=== PATIENT | male | born 1965 | race Caucasian/White ===

== ENCOUNTER 2021-04-15 18:52 | Emergency (ER) | payer MEDICARE, OTHER ==
[~2021-04-15 18:52] MED LIST: AMBIEN5 MG PO; ATIVAN0.5 MG PO; BENTYL10 MG PO; LEVAQUIN500 MG PO; LITHIUM CARBON450 MG PO; MEDROL 4MG DOSEP4 MG PO; PHENERGAN25 M1 PO; PROAIR HFA8.5 GM INH; REMERON15 MG PO; RISPERDAL2 MG PO; SEROQUEL200 MG PO; SPIRIVA INH; SYMBICORT 80-10.2 GM INH; TRAZODONE 150M150 MG PO; VENTOLIN HFA IN18 GM INH
[2021-04-15 19:53] LABS: BASOPHIL 0.5 % (0-2); EOSINOPHIL 2.8 % (0-5); HCT 39.7 % (42.0-52.0); HGB 12.6 g/dl (13.2-18.0); LYMPHOCYTE 19.5 % (15-48); MCH 29.9 pg (25.0-31.0); MCHC 31.7 g/dL (32.0-36.0); MCV 94.3 fL (78.0-100.0); MONOCYTE 7.6 % (0-12); MPV 10.5 fL (6.0-9.5); NEUTROPHIL 69.4 % (41-80); NRBC 0; PLT 255 K/uL (150-400); RBC 4.21 M/uL (4.70-6.00); RDW 14.3 % (11.5-14.0); WBC 12.1 K/uL (4.0-10.5)
[2021-04-15 19:56] LABS: BILIRUBIN NEGATIVE (NEGATIVE); BLOOD NEGATIVE Ery/uL (NEGATIVE); CLARITY CLEAR (CLEAR); COLOR YELLOW (YELLOW); GLUCOSE (U) NORMAL (NORMAL); LEUKOCYTES NEGATIVE Leu/uL (NEGATIVE); NITRITE NEGATIVE (NEGATIVE); PROTEIN NEGATIVE (NEGATIVE); UROBILINOGEN 0.2 mg/dL (0.2-1.0)
[2021-04-15 20:11] LABS: ALBUMIN 3.8 g/dL (3.4-5.0); BILIRUBIN - TOTAL 0.3 mg/dL (0.2-1.0); CREATININE 1.33 mg/dL (0.67-1.17); GLOBULIN (CALCULATION) 3.5 g/dL; POTASSIUM 4.1 mmol/L (3.5-5.1); TOTAL PROTEIN 7.3 g/dL (6.4-8.2)
[2021-04-15 20:30] LABS: CORONAVIRUS 2019 SARS-COV-2 NEGATIVE (NEGATIVE); INFLUENZA A NAA NEGATIVE (NEGATIVE)
[2021-04-15] MEDS ORDERED: MEDROL 4MG DOSEP4 MG PO ×2 (21:07→21:26)
[2021-04-15] MEDS ORDERED: AUGMENTIN 875-1 EACH PO ×2 (21:07→21:26)
[2021-04-15] MEDS ORDERED: VENTOLIN HFA IN18 GM INH (21:26)
== END 2021-04-15 22:53 | disposition home or self-care (01) ==
LOC: FER 18:52
PROVIDERS: Nurse Practitioner Family
DX: J44.1 Chronic obstructive pulmonary disease with (acute) exacerbation (principal); Z20.822 Contact with and (suspected) exposure to COVID-19
CPT/HCPCS: 36415; 71045; 80053; 81003; 84484; 85025; J1100; U0002

== ENCOUNTER 2021-04-17 20:15 | Day surgery (SDCO) | payer MEDICARE, OTHER ==
[~2021-04-17] VITALS: Ht 180.3 cm; Wt 52.3 kg
[~2021-04-17 20:15] MED LIST changes: +AUGMENTIN 875-1 EACH PO
[2021-04-17 20:44] LABS: BASOPHIL 0.7 % (0-2); EOSINOPHIL 2.8 % (0-5); HCT 39.4 % (42.0-52.0); HGB 12.6 g/dl (13.2-18.0); LYMPHOCYTE 23.7 % (15-48); MCH 29.6 pg (25.0-31.0); MCV 92.5 fL (78.0-100.0); MONOCYTE 6.3 % (0-12); MPV 10.6 fL (6.0-9.5); NEUTROPHIL 66.2 % (41-80); NRBC 0; PLT 305 K/uL (150-400); RBC 4.26 M/uL (4.70-6.00); RDW 14.3 % (11.5-14.0); WBC 15.2 K/uL (4.0-10.5)
[2021-04-17 20:51] LABS: ALBUMIN 3.9 g/dL (3.4-5.0); BILIRUBIN - TOTAL 0.2 mg/dL (0.2-1.0); BUN/CREAT RATIO (CALC) 7.8 RATIO; CREATININE 1.28 mg/dL (0.67-1.17); GLOBULIN (CALCULATION) 3.6 g/dL; POTASSIUM 3.9 mmol/L (3.5-5.1); TOTAL PROTEIN 7.5 g/dL (6.4-8.2)
[2021-04-17 20:57] LABS: BILIRUBIN NEGATIVE (NEGATIVE); BLOOD NEGATIVE Ery/uL (NEGATIVE); CLARITY CLEAR (CLEAR); COLOR YELLOW (YELLOW); GLUCOSE (U) NORMAL (NORMAL); LEUKOCYTES NEGATIVE Leu/uL (NEGATIVE); NITRITE NEGATIVE (NEGATIVE); PROTEIN NEGATIVE (NEGATIVE); UROBILINOGEN 0.2 mg/dL (0.2-1.0); pH 6.5 (5.0-9.0)
[2021-04-17 21:00] LABS: LACTIC ACID 0.6 mmol/L (0.4-1.9)
[2021-04-18 06:27] LABS: BASOPHIL 0.2 % (0-2); EOSINOPHIL 0 % (0-5); HCT 36.6 % (42.0-52.0); HGB 11.8 g/dl (13.2-18.0); MCH 29.9 pg (25.0-31.0); MCHC 32.2 g/dL (32.0-36.0); MCV 92.9 fL (78.0-100.0); MONOCYTE 4.7 % (0-12); NEUTROPHIL 91.2 % (41-80); NRBC 0; PLT 260 K/uL (150-400); RBC 3.94 M/uL (4.70-6.00); RDW 14.1 % (11.5-14.0)
[2021-04-18 06:36] LABS: WBC 12.5 K/uL (4.0-10.5)
[2021-04-18 06:49] LABS: CREATININE 1.2 mg/dL (0.67-1.17); POTASSIUM 4.4 mmol/L (3.5-5.1)
[2021-04-18] MEDS ORDERED: CYMBALTA 30MG C30 MG PO (11:24)
[2021-04-18] MEDS ORDERED: RISPERDAL3 MG PO (11:27)
[2021-04-18] MEDS ORDERED: TRAZODONE 50MG50 MG PO (11:28)
[2021-04-18] MEDS ORDERED: CRANBERRY250 MG PO (11:29)
[2021-04-18] MEDS ORDERED: GABAPENTIN600 MG PO (11:30)
[2021-04-18] MEDS ORDERED: LITHIUM PO (11:32)
[2021-04-18] MEDS ORDERED: ATIVAN1 M1 PO (11:33)
[2021-04-18] MEDS ORDERED: DITROPAN5 MG PO (11:33)
[2021-04-18] MEDS ORDERED: FOLIC ACID1 MG PO (11:34)
[2021-04-18] MEDS ORDERED: NEURONTIN100 MG PO (11:35)
[2021-04-18] MEDS ORDERED: TOPROL XL 25MG25 MG PO (11:36)
[2021-04-18] MEDS ORDERED: OMEPRAZOLE 20MG20 MG PO (11:37)
[2021-04-18] MEDS ORDERED: PERSERIS PO (11:39)
[2021-04-18] MEDS ORDERED: REMERON15 MG PO (11:39)
[2021-04-18] MEDS ORDERED: PERCOCET 5-3251 EACH PO (11:40)
--- NOTE | 2021-04-18 15:22 | NUR ---
04/18/21 Mr. Pedroza was admitted from [facility]. He was discharged from [facility] in [place], [place] 4 days ago. He has 02 and a power w/c. Several discussion have taken place with Mr. Pedroza and his POA/ counsin, Lian Smith ([phone]) re: discharge planning. They would like for Mr. Pedroza to return to Assisted Living, although they are unsure if will accept hime back. - Tianna Briceno, [employer]at [employer] of , , said Mr. Pedroza will be accepted back. Kimmy Briceno NP, with [facility] will be following Mr. Pedroza. They also plan to arrange an appointment at [facility]. Ms. Briceno requested for prescription to be written for any medications due for re-fills and to escript them to [facility]. A report was given to Dr. Lora. - Mr. Pedroza chose [facility] . Education was provided re: affliation. A referral was made to [facility] via [facility]. - Mr. Pedroza wishes to be transported back by EMS. He was educated to the [facility] and is willing to resposible for the bill.
--- NOTE | 2021-04-18 17:26 | NUR ---
INFORMED DR. MCGRATH OF PATIENTS HR 0F 127 AT REST. NO ORDERS AT THIS TIME. PT WITHOUT CHEST PAIN OR DISCOMFORT.
--- NOTE | 2021-04-19 05:17 | NUR ---
PATIENT CALLED FOR PRN TREATMENT. PATIENT APPEARED SOA BUT NOT IN DISTRESS HR 123 WITH SAT 96% ON HIS HOME O2 OF 3LNC. BREATHING TX STARTED, DIM EXP WHEEZES ON THE LEFT SIDE. PATIENT THEN BECAME MORE ANXIOUS AND AGITATED. CALLED OUT WANTING AN INHALER. EXPLAINED TO PATIENT HE CALLED FOR THIS BREATHING TX WHICH WILL HELP WITH HIS SOA AT THIS TIME. PATIENT CONTINUED TO WANT AN INHALER AND EXPLAINED THAT THE INHALER IS THE SAME THE NEBULIZER AND THE NEBULIZER WAS BETTER FOR THE PATIENT. ALSO EXPLAINED TO PATIENT THE ONLY INHALER THAT HE IS GETTING IS HIS DULERA INHALER WHICH IS A MAINTENCE MEDICATION AND WILL NOT HELP HIM WITH HIS ONSET OF SOA AND THAT HE WOULD GET THE MEDICINE AT HIS NEXT SCHEDULED BREATHING TX AT 0700. PATIENT STATED HE WAS GOING TO "" AND ASSURED PATIENT HE WASNT GOING TO AND HE NEEDED TO RELAX AND BREATHE IN HIS NEBULIZED MEDICATION, ALSO THAT HE WAS TALKING IN A COMPLETE SENTENCE TO ME WHICH INDICATES HE IS BREATHING ADEQUATLEY AND THAT HIS HEART RATE IS ELEVATED WHICH CAN ACCOUNT FOR THE SOA TOO. ASSURED PATIENT HIS OXYGEN SAT WAS APPROPRIATE. PATIENT HAS BEEN MORE ANXIOUS TONIGHT THEN THE NIGHT PRIOR I TOOK CARE OF HIM. PATIENT DOES HAVE A HX OF BIPOLAR DISORDER. PATIENT SEEMED TO BE SLIGHTLY MORE RELAXED WHEN TREAMENT WAS OVER. AGAIN REASSURED PATIENT ABOUT HIS SCHEDULED MEDICATION AND WHAT THE DIFFERENCE WAS AND WHEN HE WOULD GET IT. PATIENT ASKED FOR WATER AND A BLANKET DUE TO BEING COLD. PATIENT WAS DIMINISHED POST TX WITH FORCED AUDIBLE UPPER AIRWAY WHEEZES, PATIENT DID HAVE A STRONG NPC. AGAIN REASSURED PATIENT AND TURNED OUT HIS LIGHT FOR HIM TO REST. WILL CONTINUE TO MONITOR PATIENT. WILL PASS ALONG FOR DAYSHIFT RT TO SEE PATIENT FIRST FOR NEXT SCHEDULED ROUND TX.
--- NOTE | 2021-04-19 13:41 | NUR ---
NOTIFIED OF TACHYCARDIA. BOUNCING FROM 104-120s. MD STATES WILL ASSESS AND REVIEW MEDS
--- NOTE | 2021-04-19 22:18 | NUR ---
PT HAS NOTEABLY IMPROVED RE: ALERTNESS & ORIENTATION SINCE ADMISSION.
[2021-04-20 06:39] LABS: BASOPHIL 0.1 % (0-2); EOSINOPHIL 7.3 % (0-5); HCT 34.4 % (42.0-52.0); HGB 11.1 g/dl (13.2-18.0); LYMPHOCYTE 9.5 % (15-48); MCH 29.5 pg (25.0-31.0); MCHC 32.3 g/dL (32.0-36.0); MCV 91.5 fL (78.0-100.0); MONOCYTE 5.6 % (0-12); MPV 10.8 fL (6.0-9.5); NEUTROPHIL 77.1 % (41-80); NRBC 0; PLT 209 K/uL (150-400); RBC 3.76 M/uL (4.70-6.00); WBC 13.9 K/uL (4.0-10.5)
[2021-04-20 07:03] LABS: BUN/CREAT RATIO (CALC) 8.8 RATIO; CREATININE 1.14 mg/dL (0.67-1.17); POTASSIUM 3.2 mmol/L (3.5-5.1)
[2021-04-20] MEDS ORDERED: CARDIZEM60 MG PO (13:40)
[2021-04-20] MEDS ORDERED: PREDNISONE 20MG20 MG PO (13:40)
== END 2021-04-20 15:27 | disposition home health service (06) ==
LOC: FER 20:15 → FMS 23:24
PROVIDERS: Emergency Medicine Emergency Medical Services; Internal Medicine; Nurse Practitioner; ADMIT Internal Medicine
DX: J44.1 Chronic obstructive pulmonary disease with (acute) exacerbation (principal); Z88.8 Allergy status to other drugs, medicaments and biological substances; F32.9 Major depressive disorder, single episode, unspecified; E03.9 Hypothyroidism, unspecified; K21.9 Gastro-esophageal reflux disease without esophagitis; I25.10 Atherosclerotic heart disease of native coronary artery without angina pectoris; Z89.611 Acquired absence of right leg above knee; F17.210 Nicotine dependence, cigarettes, uncomplicated; Z20.822 Contact with and (suspected) exposure to COVID-19; F20.0 Paranoid schizophrenia; I45.10 Unspecified right bundle-branch block; R00.0 Tachycardia, unspecified; I12.9 Hypertensive chronic kidney disease with stage 1 through stage 4 chronic kidney disease, or unspecified chronic kidney disease; N18.9 Chronic kidney disease, unspecified; G89.29 Other chronic pain; F41.8 Other specified anxiety disorders
CPT/HCPCS: 36415; 36600; 70450; 71045; 80048; 80053; 81003; 82803; 83605; 84145; 84484; 85025; 87040; 87088; 92523; 93005; 94010; 94640; 94664; 94760; 97161; 97166; 97530; G0378; J0456; J0696; J1650; J2060; J2930; J7050; J7512; U0002

== ENCOUNTER 2021-04-23 14:59 | Emergency (ER) | payer MEDICARE, OTHER ==
[~2021-04-23 14:59] MED LIST changes: +ATIVAN1 M1 PO; +CARDIZEM60 MG PO; +CRANBERRY250 MG PO; +CYMBALTA 30MG C30 MG PO; +DITROPAN5 MG PO; +FOLIC ACID1 MG PO; +GABAPENTIN600 MG PO; +LITHIUM PO; +NEURONTIN100 MG PO; +OMEPRAZOLE 20MG20 MG PO; +PERCOCET 5-3251 EACH PO; +PERSERIS PO; +PREDNISONE 20MG20 MG PO; +RISPERDAL3 MG PO; +TOPROL XL 25MG25 MG PO; +TRAZODONE 50MG50 MG PO
[2021-04-23 17:14] LABS: BASOPHIL 0.6 % (0-2); HCT 38.9 % (42.0-52.0); HGB 12.8 g/dl (13.2-18.0); LYMPHOCYTE 28.1 % (15-48); MCHC 32.9 g/dL (32.0-36.0); MCV 91.3 fL (78.0-100.0); MONOCYTE 7.9 % (0-12); MPV 10.6 fL (6.0-9.5); NEUTROPHIL 52.1 % (41-80); NRBC 0; PLT 258 K/uL (150-400); RBC 4.26 M/uL (4.70-6.00); RDW 14.1 % (11.5-14.0); WBC 12.7 K/uL (4.0-10.5)
[2021-04-23 17:38] LABS: INR 1.03 (0.9-1.2); PROTHROMBIN TIME 12.9 SECONDS (11.8-13.4)
[2021-04-23 17:39] LABS: PTT 28.9 SECONDS (24.4-34.7)
[2021-04-23 17:52] LABS: ALBUMIN 3.7 g/dL (3.4-5.0); BILIRUBIN - TOTAL 0.2 mg/dL (0.2-1.0); BUN/CREAT RATIO (CALC) 8.7 RATIO; CREATININE 1.03 mg/dL (0.67-1.17); POTASSIUM 4.1 mmol/L (3.5-5.1); TOTAL PROTEIN 6.7 g/dL (6.4-8.2)
[2021-04-23 17:55] LABS: LACTIC ACID 0.4 mmol/L (0.4-1.9)
[2021-04-23 17:57] LABS: PRO-BNP 130 pg/mL (<125)
== END 2021-04-23 18:48 | disposition home or self-care (01) ==
LOC: FER 14:59
PROVIDERS: Emergency Medicine
DX: T67.01XA Heatstroke and sunstroke, initial encounter (principal); J44.9 Chronic obstructive pulmonary disease, unspecified; R07.89 Other chest pain; I45.10 Unspecified right bundle-branch block; I10 Essential (primary) hypertension; K21.9 Gastro-esophageal reflux disease without esophagitis; Z99.81 Dependence on supplemental oxygen; F17.200 Nicotine dependence, unspecified, uncomplicated; X30.XXXA Exposure to excessive natural heat, initial encounter
CPT/HCPCS: 36415; 36600; 70450; 71045; 80053; 82550; 82803; 83605; 83880; 84484; 85025; 85610; 85730; 87040; 93005; J2060

== ENCOUNTER 2021-05-11 07:23 | Emergency (ER) | payer MEDICARE, OTHER ==
[2021-05-11 08:54] LABS: BASOPHIL 0.7 % (0-2); EOSINOPHIL 3.5 % (0-5); HCT 39.5 % (42.0-52.0); HGB 12.5 g/dl (13.2-18.0); LYMPHOCYTE 15.8 % (15-48); MCH 30.3 pg (25.0-31.0); MCHC 31.6 g/dL (32.0-36.0); MCV 95.6 fL (78.0-100.0); MONOCYTE 6.1 % (0-12); MPV 10.6 fL (6.0-9.5); NEUTROPHIL 73.5 % (41-80); NRBC 0; PLT 253 K/uL (150-400); RBC 4.13 M/uL (4.70-6.00); WBC 11.3 K/uL (4.0-10.5)
[2021-05-11 09:10] LABS: BILIRUBIN NEGATIVE (NEGATIVE); BLOOD NEGATIVE Ery/uL (NEGATIVE); CLARITY CLEAR (CLEAR); COLOR YELLOW (YELLOW); GLUCOSE (U) NORMAL (NORMAL); LEUKOCYTES NEGATIVE Leu/uL (NEGATIVE); NITRITE NEGATIVE (NEGATIVE); PROTEIN NEGATIVE (NEGATIVE); SPECIFIC GRAVITY <=1.005 (1.001-1.030); UROBILINOGEN 0.2 mg/dL (0.2-1.0)
[2021-05-11 09:32] LABS: ALBUMIN 3.7 g/dL (3.4-5.0); BILIRUBIN - TOTAL 0.3 mg/dL (0.2-1.0); BUN/CREAT RATIO (CALC) 11.1 RATIO; CREATININE 1.17 mg/dL (0.67-1.17); GLOBULIN (CALCULATION) 3.2 g/dL; POTASSIUM 4.1 mmol/L (3.5-5.1); TOTAL PROTEIN 6.9 g/dL (6.4-8.2)
== END 2021-05-11 14:50 | disposition home or self-care (01) ==
LOC: FER 07:23
PROVIDERS: Emergency Medicine
DX: F31.9 Bipolar disorder, unspecified (principal); R45.4 Irritability and anger; I25.10 Atherosclerotic heart disease of native coronary artery without angina pectoris; I10 Essential (primary) hypertension; F20.0 Paranoid schizophrenia; J44.9 Chronic obstructive pulmonary disease, unspecified; F17.210 Nicotine dependence, cigarettes, uncomplicated; Z88.8 Allergy status to other drugs, medicaments and biological substances
CPT/HCPCS: 36415; 80053; 80178; 81003; 84443; 85025; 99285

== ENCOUNTER 2021-05-14 14:45 | Emergency (ER) | payer MEDICARE, OTHER ==
[2021-05-14 16:57] LABS: BASOPHIL 0.5 % (0-2); EOSINOPHIL 5.9 % (0-5); HCT 40.9 % (42.0-52.0); HGB 13.1 g/dl (13.2-18.0); LYMPHOCYTE 22.2 % (15-48); MCH 30.3 pg (25.0-31.0); MCV 94.5 fL (78.0-100.0); MONOCYTE 6.8 % (0-12); MPV 10.8 fL (6.0-9.5); NEUTROPHIL 64.2 % (41-80); NRBC 0; PLT 274 K/uL (150-400); RBC 4.33 M/uL (4.70-6.00); WBC 11.1 K/uL (4.0-10.5)
[2021-05-14 17:00] LABS: BILIRUBIN NEGATIVE (NEGATIVE); BLOOD 1+ Ery/uL (NEGATIVE); CLARITY CLEAR (CLEAR); COLOR YELLOW (YELLOW); GLUCOSE (U) NORMAL (NORMAL); LEUKOCYTES NEGATIVE Leu/uL (NEGATIVE); NITRITE NEGATIVE (NEGATIVE); PROTEIN NEGATIVE (NEGATIVE); UROBILINOGEN 0.2 mg/dL (0.2-1.0)
[2021-05-14 17:06] LABS: AMPHETAMINES NEGATIVE (NEGATIVE); BARBITURATES NEGATIVE (NEGATIVE); ECSTASY (MDMA) NEGATIVE (NEGATIVE); MARIJUANA (THC) NEGATIVE (NEGATIVE); METHADONE NEGATIVE (NEGATIVE); OPIATES POSITIVE (NEGATIVE); OXYCODONE NEGATIVE (NEGATIVE)
[2021-05-14 17:33] LABS: ALBUMIN 3.8 g/dL (3.4-5.0); BILIRUBIN - TOTAL 0.4 mg/dL (0.2-1.0); BUN/CREAT RATIO (CALC) 11.5 RATIO; CREATININE 1.39 mg/dL (0.67-1.17); GLOBULIN (CALCULATION) 3.4 g/dL; SQUAMOUS EPITHELIAL CELLS RARE; TOTAL PROTEIN 7.2 g/dL (6.4-8.2); URINARY WBC RARE
== END 2021-05-14 20:30 | disposition home or self-care (01) ==
LOC: FER 14:45
PROVIDERS: Emergency Medicine
DX: M25.532 Pain in left wrist (principal); R41.82 Altered mental status, unspecified; I12.9 Hypertensive chronic kidney disease with stage 1 through stage 4 chronic kidney disease, or unspecified chronic kidney disease; N18.9 Chronic kidney disease, unspecified; F20.9 Schizophrenia, unspecified; J44.9 Chronic obstructive pulmonary disease, unspecified; F17.210 Nicotine dependence, cigarettes, uncomplicated
CPT/HCPCS: 36415; 71045; 73100; 80053; 80305; 81001; 84484; 85025; 93005; J7030; Q9967